=== PATIENT | female | born 1975 | race Two or more races ===

== ENCOUNTER 2019-10-01 17:13 | Emergency (ER) | payer MEDICAID, OTHER ==
[~2019-10-01] VITALS: Ht 152.4 cm; Wt 100.0 kg
[2019-10-01 17:16] VITALS: BP 128/79
== END 2019-10-01 18:59 | disposition home or self-care (01) ==
LOC: EMS 17:13
DX: J02.9 Acute pharyngitis, unspecified (principal); R07.0 Pain in throat; J45.909 Unspecified asthma, uncomplicated
CPT/HCPCS: 87430

== ENCOUNTER 2019-12-08 10:16 | Emergency (ER) | payer MEDICAID ==
[~2019-12-08] VITALS: Ht 152.4 cm; Wt 100.0 kg
[2019-12-08 11:05] LABS: BASOPHILS % (AUTO) 0.6 % (0.0-2.0); EOSINOPHILS % (AUTO) 2.5 % (1.0-6.0); HEMATOCRIT 39.2 % (36-46); HEMOGLOBIN 14.1 g/dL (12.0-16.0); LYMPHOCYTES # (AUTO) 1.4 K/uL (1.0-4.8); LYMPHOCYTES % (AUTO) 23.3 % (22.0-44.0); MEAN CORPUSCULAR HEMOGLOBIN 30.2 pg (26.0-34.0); MEAN CORPUSCULAR HGB CONC 35.8 G/dL (31.0-37.0); MEAN CORPUSCULAR VOLUME 84 fL (80-100); MONOCYTES # (AUTO) 0.6 K/uL (0.1-1.0); MONOCYTES % (AUTO) 9.1 % (2.0-9.0); NEUTROPHILS # (AUTO) 3.9 K/uL (1.8-7.7); NEUTROPHILS % (AUTO) 64.5 % (40.0-70.0); PLATELET COUNT (AUTO) 217 K/uL (150-450); RED BLOOD CELL COUNT(AUTO) 4.66 MIL/uL (4.00-5.20); RED CELL DISTRIBUTION WIDTH 14.3 % (11.5-14.5)
[2019-12-08 12:46] VITALS: BP 140/79
== END 2019-12-08 12:51 | disposition home or self-care (01) ==
LOC: EMS 10:22
DX: N93.8 Other specified abnormal uterine and vaginal bleeding (principal)
CPT/HCPCS: 76856

== ENCOUNTER 2019-12-17 13:42 | Emergency (ER) | payer MEDICAID ==
[~2019-12-17] VITALS: Ht 152.4 cm; Wt 100.0 kg
[2019-12-17 15:23] LABS: BASOPHILS % (AUTO) 0.8 % (0.0-2.0); EOSINOPHILS % (AUTO) 1.5 % (1.0-6.0); HEMATOCRIT 37.4 % (36-46); LYMPHOCYTES # (AUTO) 1.7 K/uL (1.0-4.8); LYMPHOCYTES % (AUTO) 38.7 % (22.0-44.0); MEAN CORPUSCULAR HEMOGLOBIN 29.1 pg (26.0-34.0); MEAN CORPUSCULAR HGB CONC 34.8 G/dL (31.0-37.0); MEAN CORPUSCULAR VOLUME 84 fL (80-100); MONOCYTES # (AUTO) 0.8 K/uL (0.1-1.0); NEUTROPHILS # (AUTO) 1.8 K/uL (1.8-7.7); PLATELET COUNT (AUTO) 160 K/uL (150-450); RED BLOOD CELL COUNT(AUTO) 4.47 MIL/uL (4.00-5.20); RED CELL DISTRIBUTION WIDTH 14.2 % (11.5-14.5)
[2019-12-17 15:33] LABS: ANION GAP 9 mmol/L (8-16); CALCIUM, TOTAL 8.6 mg/dL (8.8-10.5); CARBON DIOXIDE 25 mmol/L (22-29); CHLORIDE 104 mmol/L (98-107); CREATININE 0.81 mg/dL (0.60-1.30); GLOMERULAR FILTR. RATE CALC > 60 mL/min (>60); GLUCOSE,RANDOM 162 mg/dL (70-110); POTASSIUM 3.5 mmol/L (3.5-5.1); SODIUM SERUM 138 mmol/L (136-145); UREA NITROGEN, BLOOD 16 mg/dL (7-18)
[2019-12-17 15:35] LABS: PROTHROMBIN TIME 10.2 SEC (9.4-11.6)
[2019-12-17 15:54] LABS: ALANINE AMINOTRANSFERASE 45 U/L (12-78); ALBUMIN 3.4 g/dL (3.4-5.0); ALKALINE PHOSPHATASE 59 U/L (46-116); ASPARTATE AMINOTRANSFERASE 21 U/L (15-37); BILIRUBIN,TOTAL 0.4 mg/dL (0.1-1.0); LIPASE 128 U/L (73-393); TOTAL PROTEIN, SERUM 7.5 g/dL (6.4-8.2)
[2019-12-17 16:15] LABS: HCG,QUANTITATIVE < 1 mIU/mL (0-6)
[2019-12-17 17:40] VITALS: BP 114/60
== END 2019-12-17 18:24 | disposition home or self-care (01) ==
LOC: EMS 13:44
DX: N93.8 Other specified abnormal uterine and vaginal bleeding (principal); J45.909 Unspecified asthma, uncomplicated; Z88.5 Allergy status to narcotic agent
CPT/HCPCS: 76856; 86850; 86900; 86901

== ENCOUNTER 2020-04-06 21:56 | Emergency (ER) | payer MEDICAID ==
[~2020-04-06] VITALS: Ht 152.4 cm; Wt 100.0 kg
[2020-04-06 22:17] VITALS: BP 115/83
[2020-04-06] MEDS ORDERED: KETOROLAC TROMETHAMINE 30 MG/ML VIAL IM ONE (23:00)
[2020-04-06] MEDS ORDERED: DEXAMETHASONE SOD PHOS 4 MG/ML 5 ML VIAL IM ONE (23:00)
== END 2020-04-07 00:38 | disposition home or self-care (01) ==
LOC: EMS 21:56
DX: J03.90 Acute tonsillitis, unspecified (principal); J45.909 Unspecified asthma, uncomplicated; Z88.5 Allergy status to narcotic agent
CPT/HCPCS: 87430; 96372; 99284; J1100; J1885

== ENCOUNTER 2020-07-11 23:12 | Emergency (ER) | payer MEDICAID ==
[~2020-07-11] VITALS: Ht 152.4 cm; Wt 100.0 kg
[2020-07-12] MEDS ORDERED: PredniSONE 20 MG TABLET PO ONE (02:00)
[2020-07-12] MEDS ORDERED: DEXAMETHASONE SOD PHOS 4 MG/ML 5 ML VIAL IM ONE (02:15)
[2020-07-12 02:23] VITALS: BP 130/77
== END 2020-07-12 02:28 | disposition home or self-care (01) ==
LOC: EMS 23:12
DX: M72.2 Plantar fascial fibromatosis (principal); J45.909 Unspecified asthma, uncomplicated
CPT/HCPCS: 73630; 96372; 99283; J1100; J7512

== ENCOUNTER 2021-02-09 10:57 | Emergency (ER) | payer MEDICAID ==
[~2021-02-09] VITALS: Ht 152.4 cm; Wt 100.0 kg
[2021-02-09 12:49] VITALS: BP 124/77
[2021-02-09 14:05] LABS: COVID AG,FIA SOURCE NASOPHARYNGEAL
== END 2021-02-09 15:48 | disposition home or self-care (01) ==
LOC: EMS 10:57
DX: J45.909 Unspecified asthma, uncomplicated (principal); Z20.822 Contact with and (suspected) exposure to COVID-19; Z90.49 Acquired absence of other specified parts of digestive tract
CPT/HCPCS: 71045; 93005; 99285

== ENCOUNTER 2022-01-02 14:59 | Emergency (ER) | payer MEDICAID ==
[~2022-01-02] VITALS: Ht 153 cm; Wt 94.1 kg
[2022-01-02 15:03] VITALS: BP 121/72
== END 2022-01-02 19:48 | disposition left against medical advice (07) ==
LOC: EMS 15:01
DX: R10.13 Epigastric pain (principal); Z53.21 Procedure and treatment not carried out due to patient leaving prior to being seen by health care provider

== ENCOUNTER 2022-06-28 16:46 | Emergency (ER) | payer MEDICAID ==
[~2022-06-28] VITALS: Ht 152.4 cm; Wt 95.5 kg
[2022-06-28] MEDS ORDERED: ALBU18HF12 IH (16:50)
[2022-06-28] MEDS ORDERED: PB/HYOSCY/ATR/SCOP/LIDO/MAALOX 55 ML BOTTLE PO ONE (17:15)
[2022-06-28] MEDS ORDERED: ACETAMINOPHEN 500 MG TABLET PO ONE (17:15)
[2022-06-28 17:25] LABS: BASOPHILS % (AUTO) 0.4 % (0.0-2.0); EOSINOPHILS % (AUTO) 1.8 % (1.0-6.0); HEMATOCRIT 41.1 % (36-46); HEMOGLOBIN 13.9 g/dL (12.0-16.0); LYMPHOCYTES # (AUTO) 1.8 K/uL (1.0-4.8); LYMPHOCYTES % (AUTO) 22.9 % (22.0-44.0); MEAN CORPUSCULAR HEMOGLOBIN 28.7 pg (26.0-34.0); MEAN CORPUSCULAR HGB CONC 33.8 G/dL (31.0-37.0); MEAN CORPUSCULAR VOLUME 85 fL (80-100); MONOCYTES # (AUTO) 0.6 K/uL (0.1-1.0); MONOCYTES % (AUTO) 8.2 % (2.0-9.0); NEUTROPHILS # (AUTO) 5.3 K/uL (1.8-7.7); NEUTROPHILS % (AUTO) 66.7 % (40.0-70.0); PLATELET COUNT (AUTO) 228 K/uL (150-450); RED BLOOD CELL COUNT(AUTO) 4.83 MIL/uL (4.00-5.20)
[2022-06-28 17:35] LABS: ANION GAP 9 mmol/L (8-16); CALCIUM, TOTAL 9.4 mg/dL (8.8-10.5); CARBON DIOXIDE 27 mmol/L (22-29); CHLORIDE 99 mmol/L (98-107); CREATININE 0.79 mg/dL (0.60-1.30); GLOMERULAR FILTR. RATE CALC > 60 mL/min (>60); GLUCOSE,RANDOM 294 mg/dL (70-110); POTASSIUM 3.9 mmol/L (3.5-5.1); SODIUM SERUM 135 mmol/L (136-145)
[2022-06-28 17:48] LABS: ALANINE AMINOTRANSFERASE 59 U/L (12-78); ALBUMIN 3.6 g/dL (3.4-5.0); ALKALINE PHOSPHATASE 74 U/L (46-116); ASPARTATE AMINOTRANSFERASE 33 U/L (15-37); BILIRUBIN,TOTAL 0.3 mg/dL (0.1-1.0); HCG,QUANTITATIVE < 1 mIU/mL (0-6); LIPASE 108 U/L (73-393); TOTAL PROTEIN, SERUM 7.8 g/dL (6.4-8.2)
[2022-06-28 18:16] VITALS: BP 126/88
[2022-06-28] MEDS ORDERED: OMEP20 PO (18:23)
[2022-06-28] MEDS ORDERED: METF-1211 PO (18:23)
== END 2022-06-28 18:48 | disposition home or self-care (01) ==
LOC: EMS 16:48
DX: R10.13 Epigastric pain (principal); R73.9 Hyperglycemia, unspecified; J45.909 Unspecified asthma, uncomplicated; Z90.49 Acquired absence of other specified parts of digestive tract; Z98.51 Tubal ligation status; Z98.890 Other specified postprocedural states; Z88.5 Allergy status to narcotic agent
CPT/HCPCS: 80053; 83690; 84702; 85025; 99284

== ENCOUNTER 2022-10-03 18:00 | Emergency (ER) | payer MEDICAID ==
[~2022-10-03] VITALS: Ht 152.4 cm; Wt 94.1 kg
[~2022-10-03 18:00] MED LIST: ALBU18HF12 IH; METF-1211 PO; OMEP20 PO
[2022-10-03 18:04] VITALS: BP 132/71; PULSE 95; RESP 18; TEMP 98.8
[2022-10-03] MEDS ORDERED: PERMETHRIN 5% 60 GM CREAM TP ONE (18:45)
[2022-10-03] MEDS ORDERED: LORA10TA7 PO (18:47)
== END 2022-10-03 19:04 | disposition home or self-care (01) ==
LOC: EMS 18:04
DX: R21 Rash and other nonspecific skin eruption (principal); J45.909 Unspecified asthma, uncomplicated; Z88.6 Allergy status to analgesic agent; Z90.49 Acquired absence of other specified parts of digestive tract; Z98.51 Tubal ligation status; Z98.890 Other specified postprocedural states
CPT/HCPCS: 99282; Z7502; Z7610

== ENCOUNTER 2022-10-16 07:43 | Emergency (ER) | payer MEDICAID ==
[~2022-10-16] VITALS: Ht 152.4 cm; Wt 94.0 kg
[~2022-10-16 07:43] MED LIST changes: +LORA10TA7 PO; -METF-1211 PO; -OMEP20 PO
[2022-10-16] MEDS ORDERED: ACET-66 PO (07:48)
[2022-10-16] MEDS ORDERED: CYCL10TA16 PO (07:48)
[2022-10-16 08:45] LABS: BASOPHILS % (AUTO) 0.8 % (0.0-2.0); EOSINOPHILS % (AUTO) 4.9 % (1.0-6.0); HEMATOCRIT 40.5 % (36-46); HEMOGLOBIN 13.7 g/dL (12.0-16.0); LYMPHOCYTES # (AUTO) 1.9 K/uL (1.0-4.8); LYMPHOCYTES % (AUTO) 27.5 % (22.0-44.0); MEAN CORPUSCULAR HEMOGLOBIN 28.8 pg (26.0-34.0); MEAN CORPUSCULAR HGB CONC 33.7 G/dL (31.0-37.0); MEAN CORPUSCULAR VOLUME 85 fL (80-100); MONOCYTES # (AUTO) 0.6 K/uL (0.1-1.0); MONOCYTES % (AUTO) 8.5 % (2.0-9.0); NEUTROPHILS % (AUTO) 58.3 % (40.0-70.0); PLATELET COUNT (AUTO) 236 K/uL (150-450); RED BLOOD CELL COUNT(AUTO) 4.75 MIL/uL (4.00-5.20); RED CELL DISTRIBUTION WIDTH 13.9 % (11.5-14.5); WHITE BLOOD COUNT (AUTO) 6.9 K/uL (4.5-11.0)
[2022-10-16 09:02] LABS: ANION GAP 13 mmol/L (8-16); CALCIUM, TOTAL 8.7 mg/dL (8.8-10.5); CARBON DIOXIDE 26 mmol/L (22-29); CHLORIDE 98 mmol/L (98-107); GLOMERULAR FILTR. RATE CALC > 60 mL/min (>60); GLUCOSE,RANDOM 244 mg/dL (70-110); POTASSIUM 4.3 mmol/L (3.5-5.1); SODIUM SERUM 137 mmol/L (136-145); UREA NITROGEN, BLOOD 16 mg/dL (7-18)
[2022-10-16 09:14] LABS: B-TYPE NATRIURETIC PEPTIDE 12 pg/mL (0-100)
[2022-10-16 09:16] LABS: ALANINE AMINOTRANSFERASE 44 U/L (12-78); ALBUMIN 3.5 g/dL (3.4-5.0); ALKALINE PHOSPHATASE 75 U/L (46-116); ASPARTATE AMINOTRANSFERASE 24 U/L (15-37); BILIRUBIN,TOTAL 0.4 mg/dL (0.1-1.0); THYROID STIMULATING HORMONE 1.57 uIU/mL (0.36-3.74); TOTAL PROTEIN, SERUM 7.3 g/dL (6.4-8.2)
[2022-10-16 09:59] VITALS: BP 123/71; PULSE 87; RESP 16; TEMP 98.3
== END 2022-10-16 10:14 | disposition home or self-care (01) ==
LOC: EMS 07:47
DX: M79.605 Pain in left leg (principal); F19.20 Other psychoactive substance dependence, uncomplicated; J45.909 Unspecified asthma, uncomplicated; Z90.49 Acquired absence of other specified parts of digestive tract; Z98.51 Tubal ligation status; Z88.6 Allergy status to analgesic agent; Z98.890 Other specified postprocedural states
CPT/HCPCS: 29530; 80053; 83880; 84443; 85025; 85379; 93970; 99284

== ENCOUNTER 2024-01-13 12:12 | Emergency (ER) | payer MEDICAID ==
[~2024-01-13] VITALS: Ht 160 cm; Wt 86.4 kg
[~2024-01-13 12:12] MED LIST changes: +ACET-66 PO; +CYCL10TA16 PO
[2024-01-13 12:18] VITALS: TEMP 98.4
[2024-01-13 13:05] LABS: BASOPHILS % (AUTO) 0.5 % (0.0-2.0); EOSINOPHILS % (AUTO) 1.3 % (1.0-6.0); HEMATOCRIT 44.3 % (36-46); HEMOGLOBIN 15.2 g/dL (12.0-16.0); LYMPHOCYTES # (AUTO) 1.8 K/uL (1.0-4.8); LYMPHOCYTES % (AUTO) 22.3 % (22.0-44.0); MEAN CORPUSCULAR HEMOGLOBIN 29.5 pg (26.0-34.0); MEAN CORPUSCULAR HGB CONC 34.3 G/dL (31.0-37.0); MEAN CORPUSCULAR VOLUME 86 fL (80-100); MONOCYTES # (AUTO) 0.6 K/uL (0.1-1.0); MONOCYTES % (AUTO) 7.4 % (2.0-9.0); NEUTROPHILS # (AUTO) 5.5 K/uL (1.8-7.7); NEUTROPHILS % (AUTO) 68.5 % (40.0-70.0); PLATELET COUNT (AUTO) 236 K/uL (150-450); RED BLOOD CELL COUNT(AUTO) 5.15 MIL/uL (4.00-5.20); RED CELL DISTRIBUTION WIDTH 13.4 % (11.5-14.5); WHITE BLOOD COUNT (AUTO) 8.1 K/uL (4.5-11.0)
[2024-01-13 13:09] LABS: ANION GAP 5 mmol/L (8-16); CALCIUM, TOTAL 7.9 mg/dL (8.8-10.5); CARBON DIOXIDE 26 mmol/L (22-29); CHLORIDE 105 mmol/L (98-107); CREATININE 0.87 mg/dL (0.60-1.30); GLOMERULAR FILTR. RATE CALC > 60 mL/min (>60); GLUCOSE,RANDOM 320 mg/dL (70-110); POTASSIUM 4.1 mmol/L (3.5-5.1); SODIUM SERUM 136 mmol/L (136-145); UREA NITROGEN, BLOOD 14 mg/dL (7-18)
[2024-01-13 13:22] LABS: HCG,QUANTITATIVE 2 mIU/mL (0-6); TROPONIN I-HIGH SENSITIVITY Less Than 4 ng/L (<51)
[2024-01-13 14:30] VITALS: BP 123/87; PULSE 93; RESP 20; O2SAT 98
[2024-01-13] MEDS: SODIUM CHLORIDE 0.9% 1,000 ML IV ONE (14:54)
[2024-01-13] MEDS: MAG HYDROX/ALUMINUM HYD/SIMETH 30 ML SUSPENSION UDCUP PO ONE (16:16)
[2024-01-13] MEDS: ACETAMINOPHEN 500 MG TABLET PO ONE (16:16)
[2024-01-13] MEDS: FAMOTIDINE 20 MG TABLET PO ONE (16:17)
[2024-01-13 19:31] LABS: GLUCOMETER DEV NAME(LOC) ER.7; GLUCOSE,POINT OF CARE 167 MG/DL (70-110)
== END 2024-01-13 16:55 | disposition home or self-care (01) ==
LOC: EMS 12:12
DX: R07.89 Other chest pain (principal); R73.9 Hyperglycemia, unspecified; J45.909 Unspecified asthma, uncomplicated; Z90.49 Acquired absence of other specified parts of digestive tract; Z98.51 Tubal ligation status; Z98.890 Other specified postprocedural states; Z88.5 Allergy status to narcotic agent
CPT/HCPCS: 99285; 96360; 71045; 80048; 82962; 84484; 84702; 85025; 85379; 36415; 93005; J7030

== ENCOUNTER 2024-01-28 17:33 | Emergency (ER) | payer MEDICAID ==
[~2024-01-28] VITALS: Ht 152.4 cm; Wt 93.2 kg
[2024-01-28 17:37] VITALS: TEMP 98.4
[2024-01-28 17:44] LABS: COVID AG,FIA SOURCE NASAL SWAB
[2024-01-28 18:05] LABS: SARS-COV2 (COVID) ANTIGEN,FIA Negative (Negative)
[2024-01-28 18:06] LABS: INFLUENZA TYPE B NEGATIVE FOR TYPE B (NEGATIVE)
[2024-01-28 18:46] LABS: INFLUENZA TYPE A POSITIVE FOR TYPE A (NEGATIVE)
[2024-01-28 19:15] VITALS: BP 125/64; O2SAT 99
[2024-01-28] MEDS: ALBUTEROL SULFATE HFA 90 MCG/PUFF 8 GM INHALER IH ONE (19:25)
[2024-01-28] MEDS: IBUPROFEN 400 MG TABLET PO ONE (19:26)
[2024-01-28] MEDS: ACETAMINOPHEN 325 MG TABLET PO ONE (19:26)
[2024-01-28 19:35] VITALS: PULSE 112; RESP 18; O2SAT 98
[2024-01-28] MEDS ORDERED: ONDA-104 PO (19:41)
[2024-01-28] MEDS: ACETAMINOPHEN 650 MG/20.3 ML SOLUTION UDCUP PO ONE (19:42)
[2024-01-28] MEDS: KETOROLAC TROMETHAMINE 30 MG/ML VIAL IM ONE (19:42)
== END 2024-01-28 19:55 | disposition home or self-care (01) ==
LOC: EMS 17:34
DX: J10.1 Influenza due to other identified influenza virus with other respiratory manifestations (principal); J45.909 Unspecified asthma, uncomplicated; Z88.5 Allergy status to narcotic agent; Z90.49 Acquired absence of other specified parts of digestive tract; Z98.51 Tubal ligation status; Z20.822 Contact with and (suspected) exposure to COVID-19
CPT/HCPCS: 99283; 87426; 87804; 94640; 96372; J1885; J3535

== ENCOUNTER 2024-06-15 18:50 | Emergency (ER) | payer MEDICAID ==
[~2024-06-15] VITALS: Ht 154.9 cm; Wt 95.0 kg
[~2024-06-15 18:50] MED LIST changes: -ACET-66 PO; -ALBU18HF12 IH; -CYCL10TA16 PO; -LORA10TA7 PO; +ONDA-104 PO
[2024-06-15 19:01] VITALS: BP 121/81; PULSE 89; RESP 16; TEMP 98.2; O2SAT 96
[2024-06-15] MEDS ORDERED: CYCL-448 PO (20:55)
[2024-06-15] MEDS ORDERED: IBUP-1492 PO (20:55)
[2024-06-15] MEDS: KETOROLAC TROMETHAMINE 60 MG/2 ML VIAL IM ONE (21:17)
== END 2024-06-15 21:41 | disposition home or self-care (01) ==
LOC: EMS 18:50
DX: S46.812A Strain of other muscles, fascia and tendons at shoulder and upper arm level, left arm, initial encounter (principal); J45.909 Unspecified asthma, uncomplicated; Z88.5 Allergy status to narcotic agent; Z90.49 Acquired absence of other specified parts of digestive tract; Z98.51 Tubal ligation status; X58.XXXA Exposure to other specified factors, initial encounter; Y93.89 Activity, other specified; Y92.89 Other specified places as the place of occurrence of the external cause; Y99.8 Other external cause status
CPT/HCPCS: 99283; 73030; 96372; J1885